=== PATIENT | female | born 1955 | race Caucasian/White ===

== ENCOUNTER 2017-10-30 09:47 | Emergency (ER) | payer SELFPAY ==
[2017-10-30] MEDS ORDERED: Ibuprofen 800 MG TAB ONE (09:59)
--- NOTE | 2017-10-30 10:51 | RAD ---
RIGHT ANKLE 3 VIEWS: HISTORY: Injury, right ankle pain. FINDINGS/IMPRESSION: Soft tissue swelling is present the lateral aspect. There is a nondisplaced fracture involving the i nferior aspect of the lateral malleolus. The ankle mortise is maintained. POS: LUIS ALBERTO
== END 2017-10-30 10:35 | disposition home or self-care (01) ==
LOC: SCSER 09:47
DX: S82.64XA Nondisplaced fracture of lateral malleolus of right fibula, initial encounter for closed fracture (principal); E03.9 Hypothyroidism, unspecified; I10 Essential (primary) hypertension; F32.9 Major depressive disorder, single episode, unspecified; Z79.899 Other long term (current) drug therapy; W17.2XXA Fall into hole, initial encounter